=== PATIENT | male | born 1930 | race Two or more races ===

== ENCOUNTER 2018-04-26 13:52 | Emergency (ER) | payer MEDICARE, BC ==
[~2018-04-26] VITALS: Ht 175.3 cm; Wt 65.8 kg
--- NOTE | 2018-04-26 14:05 | NUR ---
BB FRIEND FOR WORSENING DYSURIA, LOW BACK PAIN, URINARY URGENCY. DENIES HEAMATURIA. H/O STG 4 KIDNEY DSE. A/OX 4. BREATHING EVEN AND UNLABORED. NO SOB, NAD, VITALS STABLE. SAFETY AND COMFORT MEASURES IN PLACE. AWAITING MD ORDERS.
--- NOTE | 2018-04-26 14:35 | NUR ---
NEW IV STARTED ON RFA, 18G. BLOOD DRAWN AND SENT TO LAB.
[2018-04-26 14:40] LABS: HEMATOCRIT 27 % (39-51); HEMOGLOBIN 9.4 g/dL (13.5-17.5); MEAN CORPUSCULAR HGB CONC 34 g/dl (31.0-36.0); MEAN CORPUSCULAR VOLUME 102 fL (80-96); PLATELET COUNT (AUTO) 235 /CMM (150-450); RDW COEFFICIENT OF VARIATION 26.1 (11.5-15.0); RED BLOOD CELL COUNT(AUTO) 2.69 MIL/uL (4.5-6.0)
[2018-04-26 14:50] LABS: CARBON DIOXIDE 29 mmol/L (21-32); CHLORIDE 97 mmol/L (98-107); GLUCOSE 110 mg/dL (74-106); POTASSIUM 4.2 mmol/L (3.5-5.1); SODIUM SERUM 134 mmol/L (136-145); UREA NITROGEN, BLOOD 37 mg/dL (7-18)
[2018-04-26 14:55] LABS: ALANINE AMINOTRANSFERASE 12 U/L (12-78); ALBUMIN 4.1 g/dL (3.4-5.0); ALKALINE PHOSPHATASE 66 U/L (46-116); ASPARTATE AMINOTRANSFERASE 13 U/L (15-37); BILIRUBIN,DIRECT 0.2 mg/dL (0.0-0.2); BILIRUBIN,TOTAL 0.9 mg/dL (0.2-1.0); LIPASE 225 U/L (73-393); TOTAL PROTEIN, SERUM 7.6 g/dL (6.4-8.2)
--- NOTE | 2018-04-26 14:56 | NUR ---
URINE OBTAINED AND SENT TO LAB.
[2018-04-26 15:00] LABS: APPEARANCE,URINE SLIGHTLY HAZY (CLEAR); BILIRUBIN,URINE Negative (NEGATIVE); BLOOD, URINE Negative Ery/uL (NEGATIVE); COLOR,URINE Yellow (YELLOW); KETONES,URINE Negative (NEGATIVE); LEUKOCYTE ESTERASE ,URINE Negative (NEGATIVE); NITRITE, URINE Negative (NEGATIVE); PH,URINE 8.5 (5.0-8.0); PROTEIN,URINE Negative (NEGATIVE); UGLUCOSE Negative (NEGATIVE); UROBILINOGEN,URINE 0.2 EU/dL (0.2)
[2018-04-26 15:02] LABS: INR 1.03 (0.87-1.13)
[2018-04-26 15:03] LABS: BACTERIA,URINE None seen /HPF (None Seen); RBC,URINE 0-2 /HPF (0-2); SQUAMOUS EPITHELIAL CELL,UR Rare /HPF (None Seen); WBC,URINE 0-3 /HPF (0-3)
[2018-04-26 15:04] LABS: URINE AMORPHOUS PHOSPHATES Moderate /HPF (None Seen)
[2018-04-26 15:14] LABS: BAND % (MANUAL) 6 % (0.0-5.0); LYMPHOCYTES % (MANUAL) 14 % (16-48); MONOCYTES % (MANUAL) 22 % (0-11.0); NEUTROPHILS % (MANUAL) 58 (42-76)
[2018-04-26] MEDS ORDERED: ALLO100T PO (15:32)
[2018-04-26] MEDS ORDERED: ERGO500014 PO (15:32)
[2018-04-26] MEDS ORDERED: LEVO137T2 PO (15:32)
[2018-04-26] MEDS ORDERED: TRAM50TA2 PO (15:32)
[2018-04-26] MEDS ORDERED: OXYC-454 PO (15:32)
--- NOTE | 2018-04-26 15:42 | NUR ---
PATIENT TAKEN TO CT VIA WHEELCHAIR.
--- NOTE | 2018-04-26 15:53 | NUR ---
PATIENT RETURNED FROM CT IN STABLE CONDITION.
--- NOTE | 2018-04-26 16:53 | NUR ---
16 FR elizabeth catheter inserted per sterile protocOl. Immediate output 300ML of urine, yellow and clear
[2018-04-26] MEDS ORDERED: LEVOFLOXACIN (500MG) 500 MG TABLET PO ONE (17:00)
[2018-04-26] MEDS ORDERED: LEVOFLOXACIN (500MG) 500 MG TABLET ONE (17:23)
--- NOTE | 2018-04-26 17:35 | NUR ---
elizabeth bag dc'd. catheter left intact, converted to leg bag per md orders.
--- NOTE | 2018-04-26 17:50 | NUR ---
IV removed. Catheter intact and site benign. Pressure and 4x4 applied to site. No bleeding noted. Patient discharged to home in stable condition. Written and verbal after care instructions given. Patient verbalizes understanding of instruction. Urinary indwelling catheter left intact with leg bag, instructed patient to follow up with urology. Referral provided, patient verbalizes understanding. Patient discharged home, ambulatory.
[2018-04-26 17:54] VITALS: BP 136/74
== END 2018-04-26 17:50 | disposition home or self-care (01) ==
LOC: ER 13:55
DX: R33.9 Retention of urine, unspecified (principal); E83.52 Hypercalcemia; R30.0 Dysuria; E03.9 Hypothyroidism, unspecified; Z88.0 Allergy status to penicillin
CPT/HCPCS: 36415; 51702; 74176; 80048; 80076; 81001; 83690; 85025; 85730; 87086; 99285; A4606; 81000-TC; Z7610